=== PATIENT | male | born 2000 | race African-American/Black ===

== ENCOUNTER 2020-08-19 15:05 | Emergency (ER) | payer SELFPAY ==
[~2020-08-19] VITALS: Ht 182.9 cm; Wt 72.0 kg
[2020-08-19] MEDS ORDERED: LIDOCAINE HCL/EPINEPHRINE 1%-EPI 1:100,000 20 ML VIAL INFIL ONE (15:45)
[2020-08-19] MEDS ORDERED: HYDROCODONE/ACETAMINOPHEN 5/325MG TABLET PO ONE (15:45)
[2020-08-19] MEDS ORDERED: TETANUS, DIPHTHERIA, PERTUSSIS VAC/PF 0.5ML (>7YR OLD) IM ONE (15:45)
[2020-08-19] MEDS ORDERED: BACITRACIN ZINC OINT UDPKT TOP ONE (15:45)
[2020-08-19] MEDS ORDERED: IBUP-2029 MT (17:45)
[2020-08-19] MEDS ORDERED: BO1 TP (17:45)
[2020-08-19 18:40] VITALS: BP 135/75
== END 2020-08-19 18:42 | disposition home or self-care (01) ==
LOC: ER 15:05
DX: S61.412A Laceration without foreign body of left hand, initial encounter (principal); W18.39XA Other fall on same level, initial encounter; Y93.89 Activity, other specified; Y92.89 Other specified places as the place of occurrence of the external cause; Y99.8 Other external cause status
CPT/HCPCS: 29125; 73110; 73130; 90471; 90715; 99284; A4217; J3490; Z7610

== ENCOUNTER 2020-08-22 12:14 | Emergency (ER) | payer MEDICAID ==
[~2020-08-22] VITALS: Ht 182.9 cm; Wt 91.0 kg
[~2020-08-22 12:14] MED LIST: BO1 TP; IBUP-2029 MT
[2020-08-22 12:22] VITALS: BP 117/66
== END 2020-08-22 14:34 | disposition home or self-care (01) ==
LOC: ER 12:14
DX: Z48.00 Encounter for change or removal of nonsurgical wound dressing (principal); M25.532 Pain in left wrist; M79.642 Pain in left hand
CPT/HCPCS: 73110; 73130; 99284